=== PATIENT | female | born 1980 | race Caucasian/White ===

== ENCOUNTER 2020-05-13 09:43 | Outpatient (REF) | payer OTHER, SELFPAY ==
[2020-05-14 09:47] LABS: BV Int Neg Control Negative (Negative); BV Int Pos Control Positive (Positive)
[2020-05-15 13:03] LABS: C. trachomatis RNA TMA NOT DETECTED; N. gonorrhoeae RNA TMA NOT DETECTED
== END 2020-05-13 09:44 | disposition home or self-care (01) ==
LOC: HO.LAB 09:43
PROVIDERS: Visit Provider Advanced Practice Midwife
DX: Z01.419 Encounter for gynecological examination (general) (routine) without abnormal findings (principal); N83.209 Unspecified ovarian cyst, unspecified side; R32 Unspecified urinary incontinence; Z20.2 Contact with and (suspected) exposure to infections with a predominantly sexual mode of transmission; I10 Essential (primary) hypertension
CPT/HCPCS: 87480; 87491; 87510; 87591; 87660; 99202

== ENCOUNTER 2020-05-28 13:41 | Outpatient (REF) | payer OTHER, SELFPAY ==
--- NOTE | 2020-05-28 13:49 | US_ITS ---
EXAMINATION: US PELVIS COMPLETE CLINICAL INFORMATION: Ovarian cyst. COMPARISON: Ultrasound pelvis 01/19/2020. TECHNIQUE: Transabdominal and transvaginal ultrasound of the pelvis is performed. FINDINGS: The uterus is anteverted and anteflexed measuring 9.2 cm in length, 5.8 cm in AP and 5.8 cm in transverse dimension. Endometrial thickness measures 1.2 cm. There is a hypoechoic lesion in the left fundus measuring 3.0 x 3.1 x 2.5 cm, consistent with fibroid. Previously it measured 3.1 x 3.0 x 3.1 cm. Previously seen second fibroid is not visualized at this time. There are several nabothian cysts in the cervix. Previously visualized myometrial cyst is not seen at this time. Right ovary measures 2.8 x 1.7 x 1.9 cm and volume 4.7 mL. Previously it measured 3.5 x 2.5 x 2.1 cm. Left ovary measures 2.7 x 2.9 x 2.8 cm and volume 11.5 mL. Previously it measured 2.3 x 2.3 x 1.7 cm. There is no free fluid in the cul-de-sac. US/US transvaginal IMPRESSION: Left uterine fibroid is stable. Unremarkable ovaries. Small nabothian cysts in the cervix.
--- NOTE | 2020-05-28 13:49 | US_ITS ---
EXAMINATION: US PELVIS COMPLETE CLINICAL INFORMATION: Ovarian cyst. COMPARISON: Ultrasound pelvis 01/19/2020. TECHNIQUE: Transabdominal and transvaginal ultrasound of the pelvis is performed. FINDINGS: The uterus is anteverted and anteflexed measuring 9.2 cm in length, 5.8 cm in AP and 5.8 cm in transverse dimension. Endometrial thickness measures 1.2 cm. There is a hypoechoic lesion in the left fundus measuring 3.0 x 3.1 x 2.5 cm, consistent with fibroid. Previously it measured 3.1 x 3.0 x 3.1 cm. Previously seen second fibroid is not visualized at this time. There are several nabothian cysts in the cervix. Previously visualized myometrial cyst is not seen at this time. Right ovary measures 2.8 x 1.7 x 1.9 cm and volume 4.7 mL. Previously it measured 3.5 x 2.5 x 2.1 cm. Left ovary measures 2.7 x 2.9 x 2.8 cm and volume 11.5 mL. Previously it measured 2.3 x 2.3 x 1.7 cm. There is no free fluid in the cul-de-sac. US/US pelvic complete IMPRESSION: Left uterine fibroid is stable. Unremarkable ovaries. Small nabothian cysts in the cervix.
== END 2020-05-28 13:42 | disposition home or self-care (01) ==
LOC: HO.US 13:41
PROVIDERS: Visit Provider Advanced Practice Midwife
DX: N83.209 Unspecified ovarian cyst, unspecified side (principal)
CPT/HCPCS: 76830; 76856

== ENCOUNTER → 2020-06-11 10:40 | Outpatient (BNVA) | payer OTHER, SELFPAY | PROVIDERS: PCP Internal Medicine; Visit Provider Advanced Practice Midwife | DX: D21.9 Benign neoplasm of connective and other soft tissue, unspecified (principal); Z71.2 Person consulting for explanation of examination or test findings | CPT/HCPCS: 99212 ==

== ENCOUNTER 2021-01-18 19:02 | Emergency (ER) | payer OTHER, SELFPAY ==
[2021-01-18 19:09] VITALS: BP 139/89; PULSE 96; RESP 16; TEMP 36.5; O2SAT 97; BMI 35.4
--- NOTE | 2021-01-18 20:22 | ED_ITS ---
HPI - General Adult General Chief complaint: Extremity Problem Stated complaint: Leg cramping Time Seen by Provider: 01/18/21 20:11 Source: patient Mode of arrival: ambulatory Limitations: no limitations History of Present Illness HPI narrative: 40-year-old female who presents emergency department for evaluation of pain in her lower extremities and cramping in her calf muscles at night. The patient does have a history of varicose veins and she states that she is having pain in her varicose veins. She states that on the right leg she is having pain from her ankle to her thigh in on her left leg she is having pain in her thigh. She points to multiple varicose veins are causing the pain. She states the pain is a constant, dull ache which is 8/10 at its worst. She also states that several times a night she will wake up with severe pain in her calf muscles. She denied fever, chills, chest pain, shortness of breath, dyspnea on exertion. She denies swelling of her lower extremities. She states that oc casionally she takes ibuprofen for the pain and this does give her some relief. Related Data Home Medications Medication Instructions Recorded Confirmed amlodipine 5 mg tablet 5 mg PO DAILY 05/13/20 Previous Rx's Medication Instructions Recorded cyclobenzaprine 10 mg tablet 10 mg PO BEDTIME PRN #20 tab 01/18/21 Allergies Allergy/AdvReac Type Severity Reaction Status Date / Time No Known Allergies Allergy Verified 01/18/21 19:09 Review of Systems Review of Systems: Yes all other systems are reviewed and are negative PMFSH Past Medical History [facility] Narrative: Social history: She denies tobacco, alcohol and drug use. Medical History Cervicitis HTN (hypertension) Hyperlipidemia Ovarian cyst Surgical History History of bilateral breast reduction surgery Hx of tubal ligation Family History Family History Mother Ovarian cancer Sister Diabetes HTN (hypertension) Social History Social History Alcohol intake: never Advance Directives: No Advance Directives Information Provided: No Gender identity: Female Physical Exam Vital Signs: Vital Signs: Last Vital Signs Temp 97.7 F 01/18/21 19:09 Pulse 96 01/18/21 19:09 Resp 16 01/18/21 19:09 BP 139/89 01/18/21 19:09 Pulse Ox 97 01/18/21 19:09 Body Mass Index 35.4 Const: General: cooperative and no acute distress Orientation/consciousness: oriented to person and oriented to place Limitations: no limitations HENMT: Head: Yes normal to inspection, Yes normocephalic and Yes atraumatic Ears: external ears normal General nose exam: Normal external nose present Face and sinus: Yes normal facial exam Mouth: Normal oral and palatal mucosa present Throat: Yes posterior oropharynx normal Eyes: General: appearance normal, both eyes and all related structures Pupils: Equal, round and reactive pupils present Neck: Neck: Yes normal visual inspection, Yes no lymphadenopathy, Yes trachea midline and Yes supple Chest: Chest palpation & inspection: normal inspection of the chest and normal palpation of entire chest wall Resp: Effort & Inspection: normal respiratory effort and able to speak in complete sentences Auscultation: clear to auscultation bilaterally Cardio: Rate: regular rate Rhythm: regular rhythm Heart sounds: S1 normal heart sound present, S2 normal heart sound present and no murmurs GI: Inspection: Yes normal to inspection Palpation (GI): Soft to palpation, nontender and no guarding Auscultation: normal bowel sounds : General: Yes no CVA tenderness Back/Spine/Pelvis: Back: no CVA tenderness Skin: General skin exam: no rashes or lesions noted Neuro: General: oriented to person and oriented to place Cranial nerves: Yes CN's II-XII intact bilaterally and Yes Equal, round and reactive pupils present Cognition (Neuro): normal cognition Motor exam (neuro): 5/5 motor strength present throughout Extrem: Other: Patient does have bilateral varicose veins was supple areas of ecchymosis over these veins, there is no increased warmth or cords noted, both lower extremities appear to be normal in size and are symmetric, negative Homans sign bilaterally. Psych: Appearance: grossly normal Speech and movement: Normal speech and movement present Affect: normal affect Attitude: cooperative Thought process: Normal thought process present Thought content: Normal thought content present Course Course Course Narrative: 40-year-old female who presents emergency department for evaluation of bilateral lower extremity pain, varicose veins and cramping that occurs in her calves at night. The patient's vital signs were normal with an O2 saturation of 97% on room air. Patient was not tachycardic or tachypneic. Exam did reveal multiple varicose veins but no evidence of swelling of her visor caps. At this time I do not think that she has a DVT as the cause of her leg pain but I do think that she has pain in her varicose vein secondary to thrombophlebitis. The patient was advised to take ibuprofen Tylenol for pain. I will start her on cyclobenzaprine 10 mg at night as needed for leg cramps to see if this improves her symptoms. The patient was given verbal and printed instructions prior to discharge. The patient was advised to follow-up with her PCP in 2 days and to return to the emergency department if her symptoms get worse or if she develops any new symptoms that are concerning to her. Discharge Plan Discharge Clinical Impression: Calf cramp Varicose veins of both lower extremities Qualifiers: Varicose vein complication: pain Qualified Code(s): I83.813 - Varicose veins of bilateral lower extremities with pain Patient Disposition: Home, Self-Care Instructions: Leg Cramps (ED) Additional Instructions: Take ibuprofen 200 mg pills, 3 pills every 6 hours as needed for pain. Take Tylenol (acetaminophen) 500 mg pills, 2 pills every 4 to 6 hours as needed for pain. I am prescribing Flexeril (cyclobenzaprine) 10 mg, 1 pill at night as needed for leg cramps. This medication will make you sleepy, do not drive or work after taking this medication. You should also try using a heating pad on low heat on your legs especially in areas that hurt, this often helps reduce the pain from varicose veins. Follow-up with your doctor in 2 days. Please return to the emergency department if your symptoms get worse or if you develop any symptoms that are concerning to you. Prescriptions: New cyclobenzaprine 10 mg tablet 10 mg PO BEDTIME PRN (Reason: muscle spasm) Qty: 20 RF: 0 No Action amlodipine 5 mg tablet 5 mg PO DAILY RF: 0
== END 2021-01-18 21:02 | disposition home or self-care (01) ==
PROVIDERS: Emergency Provider Emergency Medicine Emergency Medical Services
DX: R25.2 Cramp and spasm (principal); I83.813 Varicose veins of bilateral lower extremities with pain; I10 Essential (primary) hypertension
CPT/HCPCS: 99283

== ENCOUNTER 2021-03-03 19:55 | Emergency (ER) | payer OTHER, SELFPAY ==
--- NOTE | ~2021-03-03 | XR_ITS ---
EXAMINATION: PORTABLE CHEST 1 VIEW CLINICAL INFORMATION: Chest pressure . COMPARISON: 04/04/2019. TECHNIQUE: Portable frontal view of the chest was obtained. FINDINGS: The lungs are well expanded. No focal infiltrate, effusion, edema, or pneumothorax. Cardiac and mediastinal silhouettes are within normal limits for technique. No acute bony abnormality seen. XR/XR chest 1V IMPRESSION: No evidence of acute disease.
[2021-03-03 21:58] VITALS: BP 147/105; PULSE 95; RESP 18; TEMP 37; O2SAT 98; BMI 37.8
--- NOTE | 2021-03-03 22:15 | ED_ITS ---
HPI - General Adult General Chief complaint: General Medical Stated complaint: Flu like Source: patient Mode of arrival: ambulatory Limitations: no limitations History of Present Illness HPI narrative: 40-year-old female presents with upper respiratory symptoms, diarrhea, abdominal pain and some chest tightness for approximately 1 week. Would like to be tested for COVID-19. Onset (ago): week(s) (1) Location: head, chest and abdomen Radiation: non-radiation Severity: mild Quality: aching Pain Consistency: constant Relieving factors: none Associated symptoms: cough, fever/chills and headaches Treatments prior to arrival: none Related Data Home Medications Medication Instructions Recorded Confirmed amlodipine 5 mg tablet 5 mg PO DAILY 05/13/20 Previous Rx's Medication Instructions Recorded cyclobenzaprine 10 mg tablet 10 mg PO BEDTIME PRN #20 tab 01/18/21 Allergies Allergy/AdvReac Type Severity Reaction Status Date / Time No Known Allergies Allergy Verified 01/18/21 19:09 Review of Systems Review of Systems: Constitutional: No Fever, no Chills, positive fatigue, positive Malaise ENT/Mouth: No sore throat, positive runny nose Eyes: No Discharge Cardiovascular: Positive Chest Pain, No SOB Respiratory: Positive Cough, No Sputum, No Wheezing, No Smoke Exposure, No Dyspnea Gastrointestinal: Positive Nausea, No Vomiting, No Diarrhea Genitourinary: no irregular bleeding, No Dysuria, No Urinary Frequency, No Hematuria, No Urinary Incontinence, No Urgency, No Flank Pain, Musculoskeletal: positive Myalgia Skin: No rash Neuro: Positive Headache Yes all other systems are reviewed and are negative PMFSH Past Medical History Attestation statement: The following information was validated with the patient. Source: old records reviewed Medical History Cervicitis HTN (hypertension) Hyperlipidemia Ovarian cyst Surgical History History of bilateral breast reduction surgery Hx of tubal ligation Family History Family History Mother Ovarian cancer Sister Diabetes HTN (hypertension) Social History Social History Alcohol intake: never Advance Directives: No Advance Directives Information Provided: No Patient : No Gender identity: Female Physical Exam Vital Signs: Vital Signs: Last Vital Signs Temp 98.6 F 03/03/21 21:58 Pulse 95 03/03/21 21:58 Resp 18 03/03/21 21:58 BP 147/105 H 03/03/21 21:58 Pulse Ox 98 03/03/21 21:58 Body Mass Index 37.8 Appearance: Alert. Oriented X3. Mild distress. Appears tired. Eyes: Pupils equal, round and reactive to light. Sclera nonicteric. ENT: Pharynx normal. Moist mucous membranes. Neck: Normal inspection. Neck supple. No cervical lymphadenopathy noted. CVS: Normal heart rate and rhythm. Pulses normal. Respiratory: No respiratory distress. Breath sounds normal. Abdomen: Soft and nontender. Obese. Skin: Skin warm and dry. Normal skin color. Normal skin turgor. Extremities: No lower extremity edema. Moves all extremities against resistance. Neuro: No motor deficit. No sensory deficit. Cranial nerves 2-12 intact. Course Course Course Narrative: 40-year-old female presents with upper respiratory symptoms consistent with COVID-19. Will order some testing. She does state to have some chest tightness and pressure. Will order EKG and chest x-ray. If EKG shows any abnormalities we will continue with serial troponins. Abdominal exam is unremarkable, negative psoas, obturator and rigidity. Low likelihood of acute abdomen at this time. COVID-19 negative. Chest x-ray normal. EKG indicates normal sinus. Wells PE score is 0. Plan of care to discharge home. Patient verbalized understanding of and agrees to plan. Medical Decision Making Differential Diagnosis Differential Diagnosis: Upper respiratory, COVID, influenza, pneumonia, ACS Medical Records Medical records reviewed: Yes I reviewed the patient's medical records. Lab Data Lab results reviewed: Yes I reviewed the patient's lab results. Labs: Lab Results 03/03/21 Range/Units 22:04 COVID-19 (AMY) Negative (Negative) COVID-19 Clin Com See Note Imaging Data Chest x-ray: Attestation: I personally reviewed and interpreted this imaging study as f amanda: ECG Data Attestation: I personally reviewed and interpreted this ECG as follows: Prior ECG tracings: available for review Interpretation: Vent. rate 89 BPM NH interval 140 ms QRS duration 76 ms QT/QTc 380/462 ms P-R-T axes 33 -1 17 Normal sinus rhythm Normal ECG When compared with ECG of 04-APR-2018 14:16, No significant change was found 03-MAR-2021 22:42:39 Discharge Plan Discharge Clinical Impression: Upper respiratory infection, acute High blood pressure Qualifiers: Hypertension type: unspecified Qualified Code(s): I10 - Essential (primary) hypertension Patient Disposition: Home, Self-Care Instructions: Hypertension (ED), Upper Respiratory Infection (ED), Viral Syndrome (ED) Additional Instructions: Se le evalu? por s?ntomas de las v?as respiratorias superiores. Neal prueba de COVID-19 es negativa. Neal radiograf?a de t?rax fue normal. Neal ECG fue de ritmo sinusal normal. Neal presi?n arterial est? elevada. Milana un seguimiento con neal m?dico de atenci?n primaria esta semana charles evaluaci?n de neal medicaci?n para la presi?n arterial. Eve por elegir abdi departamento de emergencias para neal evaluaci?n. Milana un seguimiento con neal m?dico de atenci?n primaria seg?n sea necesario. Regrese al departamento de emergencias por cualquier s?ntoma nuevo, preocupante o que empeore. You were evaluated for upper respiratory symptoms. Your COVID-19 test is negative. Your chest x-ray was normal. Your EKG was normal sinus rhythm. Your blood pressure is elevated. Please follow up with your primary care physician this week as your blood pressure medication evaluation. Thank you for choosing this emergency department for evaluation. Please follow -up with primary care physician as needed. Return to the emergency department for any new, concerning, or worsening symptoms. Prescriptions: No Action cyclobenzaprine 10 mg tablet 10 mg PO BEDTIME PRN (Reason: muscle spasm) Qty: 20 RF: 0 amlodipine 5 mg tablet 5 mg PO DAILY RF: 0
--- NOTE | 2021-03-03 22:15 | ECG_ITS ---
Test Reason : CHEST PAIN Blood Pressure : / mmHG Vent. Rate : 089 BPM Atrial Rate : 089 BPM P-R Int : 140 ms QRS Dur : 076 ms QT Int : 380 ms P-R-T Axes : 033 -01 017 degrees QTc Int : 462 ms Normal sinus rhythm Normal ECG When compared with ECG of 04-APR-2018 14:16, No significant change was found Referred By: Eve Cisse Electronically Signed By:BILLY ALEXANDER MD
[2021-03-03 22:26] LABS: COVID-19 Test Negative (Negative)
== END 2021-03-03 23:38 | disposition home or self-care (01) ==
PROVIDERS: Emergency Provider Internal Medicine
DX: J06.9 Acute upper respiratory infection, unspecified (principal); I10 Essential (primary) hypertension; Z20.822 Contact with and (suspected) exposure to COVID-19
CPT/HCPCS: 36415; 71045; 87635; 93005; 99283

== ENCOUNTER 2021-07-23 11:30 | Outpatient (REF) | payer OTHER, SELFPAY ==
[2021-07-23 13:46] LABS: Hematocrit 37.8 % (37.0-47.0); Mean Corpuscular HGB Conc 31.7 g/dl (31.0-35.0); Mean Corpuscular Hemoglobin 26.5 pg (27.0-33.0); Mean Corpuscular Volume 83.4 fL (80.0-98.0); Mean Platelet Volume 10.5 fL (9.4-12.3); Platelet Count 339 X10*3/uL (160-400); Red Blood Count 4.53 X10*6/uL (4.20-5.50); Red Cell Distribution Width 14.5 % (11.0-16.0); White Blood Count 8.3 X10*3/uL (4.8-10.8)
[2021-07-23 14:45] LABS: Thyroid Stimulating Hormone 1.05 uIU/mL (0.32-4.0)
[2021-07-23 14:55] LABS: Syphilis Screen Nonreactive (Nonreactive)
[2021-07-24 04:32] LABS: ~HepC Num1 0.14 S/CO (0.00-0.79); ~Hepatitis C Antibody Nonreactive (Nonreactive)
[2021-07-24 04:39] LABS: HBsAGNum1 0.26 S/CO (0.00-0.99); HIV AB/AG Nonreactive (Nonreactive); HIV Num 1 0.05 S/CO (0.00-0.99); Hepatitis B Surface Antigen Negative (Negative)
== END 2021-07-23 11:31 | disposition home or self-care (01) ==
LOC: HO.LAB 11:30
PROVIDERS: Visit Provider Advanced Practice Midwife
DX: Z00.00 Encounter for general adult medical examination without abnormal findings (principal); D21.9 Benign neoplasm of connective and other soft tissue, unspecified; N92.0 Excessive and frequent menstruation with regular cycle; I10 Essential (primary) hypertension; Z98.890 Other specified postprocedural states; Z79.899 Other long term (current) drug therapy; Z20.2 Contact with and (suspected) exposure to infections with a predominantly sexual mode of transmission
CPT/HCPCS: 36415; 84443; 85027; 86780; 86803; 87340; 87389

== ENCOUNTER 2021-07-23 13:09 | Outpatient (REF) | payer OTHER, SELFPAY ==
[2021-07-23 17:08] LABS: CT PCR NOT DETECTED (Not Detect.); NG PCR NOT DETECTED (Not Detect.)
[2021-07-24 13:31] LABS: BV Int Neg Control Negative (Negative); BV Int Pos Control Positive (Positive)
[2021-07-29 11:51] LABS: HPV 16 RNA NOT DETECTED (NOT DETECTED); HPV mRNA E6/E7 rflx Detected (Not Detected)
== END 2021-07-23 13:10 | disposition home or self-care (01) ==
LOC: HO.LAB 13:09
PROVIDERS: Visit Provider Advanced Practice Midwife
DX: Z01.419 Encounter for gynecological examination (general) (routine) without abnormal findings (principal); Z20.2 Contact with and (suspected) exposure to infections with a predominantly sexual mode of transmission
CPT/HCPCS: 87480; 87491; 87510; 87591; 87624; 87625; 87660; 88142

== ENCOUNTER 2021-09-30 08:29 | Outpatient (REF) | payer OTHER, SELFPAY | END 2021-09-30 08:30 | disposition home or self-care (01) | LOC: HO.LAB 08:29 | PROVIDERS: Visit Provider Obstetrics & Gynecology | DX: R87.810 Cervical high risk human papillomavirus (HPV) DNA test positive (principal); R87.610 Atypical squamous cells of undetermined significance on cytologic smear of cervix (ASC-US) | CPT/HCPCS: 57454; 88305; 88342; 88360 ==

== ENCOUNTER → 2021-11-25 09:52 | Outpatient (BNVA) | payer OTHER, SELFPAY | PROVIDERS: PCP Pediatrics; Visit Provider Obstetrics & Gynecology | DX: R87.610 Atypical squamous cells of undetermined significance on cytologic smear of cervix (ASC-US) (principal); R87.810 Cervical high risk human papillomavirus (HPV) DNA test positive; Z98.890 Other specified postprocedural states | CPT/HCPCS: 99212 ==

== ENCOUNTER 2022-05-09 11:31 | Emergency (ER) | payer OTHER, SELFPAY ==
--- NOTE | ~2022-05-09 | XR_ITS ---
EXAMINATION: XR CHEST CLINICAL INFORMATION: Cough COMPARISON: Chest x-ray March 03, 2021 TECHNIQUE: 2 views of the chest were obtained. FINDINGS: Cardiac silhouette is normal in size. The lungs are well aerated. There is no lobar consolidation. No pleural effusion or pneumothorax. Mild degenerative changes of the spine. XR/XR chest 2V IMPRESSION: No acute pulmonary pathology.
[2022-05-09 11:34] VITALS: BP 146/93; PULSE 108; RESP 18; TEMP 36.9; O2SAT 97; BMI 36.5
--- NOTE | 2022-05-09 12:21 | ECG_ITS ---
Test Reason : SOB Blood Pressure : / mmHG Vent. Rate : 096 BPM Atrial Rate : 096 BPM P-R Int : 132 ms QRS Dur : 072 ms QT Int : 358 ms P-R-T Axes : 036 002 027 degrees QTc Int : 452 ms Normal sinus rhythm Normal ECG When compared with ECG of 03-MAR-2021 22:42, No significant change was found Referred By: Larry Rae Electronically Signed By:FRANCISCA PERALTA
--- NOTE | 2022-05-09 12:21 | ED.GENADULT ---
HPI - General Adult General Chief complaint: Upper Respiratory Symptoms Stated complaint: Dizzy, congestion Time Seen by Provider: 05/09/22 12:02 History of Present Illness HPI narrative: patient complains of dizziness today feeling lightheaded when she stands up Over the last 4- 5 days she has had possible fever ,body aches congestion stuffy nose cough, members of her family have been sick with the same The dizziness is a lightheaded feeling without a feeling of room spinning, no associated weakness or numbness, balance and walking have been fine, she has not fainted she has no chest pain no shortness of breath no vomiting Related Data Home Medications Medication Instructions Recorded Confirmed amlodipine 5 mg tablet 5 mg PO DAILY 05/13/20 07/23/21 Previous Rx's Medication Instructions Recorded cyclobenzaprine 10 mg tablet 10 mg PO BEDTIME PRN muscle spasm 01/18/21 #20 tabs acetaminophen 500 mg tablet 1,000 mg PO QID PRN pain #30 tabs 05/09/22 ibuprofen 600 mg tablet 600 mg PO Q6H PRN fever or pain 05/09/22 #20 tabs Allergies Allergy/AdvReac Type Severity Reaction Status Date / Time No Known Allergies Allergy Verified 05/09/22 11:34 Review of Systems Review of Systems: positive for fever body aches dizziness cough Negatives are no confusion no loss of balance no chest pain no palpitations no shortness of breath no exertional symptoms no diaphoresis no fainting no stiff neck no abdominal pain no nausea vomiting or diarrhea no dysuria no frequency no skin rash no joint swelling no numbness or weakness no difficulty ambulating Yes all other systems are reviewed and are negative PMFSH Past Medical History Medical History Cervicitis HTN (hypertension) Hyperlipidemia Ovarian cyst Surgical History History of bilateral breast reduction surgery Hx of abdominoplasty Hx of bladder repair surgery Hx of tubal ligation Family History Family History Mother Ovarian cancer Sister Diabetes HTN (hypertension) Social History Social History Alcohol intake: never Patient Tobacco Use Status: Never used Tobacco Advance Directives: No Advance Directives Information Provided: No Gender identity: Female Physical Exam ED Vital Signs: Vital Signs - 24 hr 05/09/22 14:28 Temperature 99.3 F Pulse Rate 92 Blood Pressure 129/81 Pulse Oximetry 97 Oxygen Delivery Method Room Air BMI result Body Mass Index 36.5 general appearance uncomfortable but no acute distress Eyes no redness or discharge The sinuses were nontender the nose was congested The pharynx was clear without redness swelling or exudate, voice was normal, membranes were mildly dry Neck was supple Chest clear to auscultation bilateral Heart no murmur Abdomen soft nontender Extremities full range of motion x4 Neuro gait balance are normal, interaction both verbal and comprehension and expression are normal, cerebellar exam was normal, motor is 5/5 x4, sensation intact and symmetrical in cranial nerves 2-12 intact as tested Course Course Course Narrative: EKG was a normal sinus rhythm with a rate of 96, no acute ischemic changes no ST changes intervals were normal and QT was normal Chest x-ray was normal no pneumonia Lab evaluation without any acute findings Patient was hydrated with a L of saline with improvement in her dizziness, she ambulated easily with good balance and felt improved Flu test was positive but patient is out of the window for Tamiflu as she has had symptoms for several days and patient was discharged home, ambulating easily tolerating p.o. and feeling improved Medications Administered Discontinued Medications Generic Name Dose Route Start Last Admin Trade Name Rosemary PRN Reason Stop Dose Admin Acetaminophen 975 mg 05/09/22 14:35 05/09/22 14:38 Acetaminophen 325 Mg Tablet PO 05/09/22 14:36 975 mg ONCE ONE Administration Sodium Chloride 1,000 mls @ 999 mls/hr 05/09/22 12:30 05/09/22 14:41 Ns IVCONT 05/09/22 13:30 Infused .Q1H1M RADHA Infusion Medical Decision Making Lab Data MDM Lab Attestation statement: I reviewed the patient's lab results. Result Diagrams: 05/09/22 12:31 05/09/22 13:10 Labs: Lab Results 05/09/22 05/09/22 05/09/22 Range/Units 11:34 12:31 13:10 WBC 4.6 L (4.8-10.8) X10*3/uL RBC 4.50 (4.20-5.50) X10*6/uL Hgb 11.4 L (12.0-16.0) g/dl Hct 35.6 L (37.0-47.0) % MCV 79.1 L (80.0-98.0) fL MCH 25.3 L (27.0-33.0) pg MCHC 32.0 (31.0-35.0) g/dl RDW 15.0 (11.0-16.0) % Plt Count 287 (160-400) X10*3/uL MPV 10.0 (9.4-12.3) fL Immature Gran % (Auto) 0.2 (0.0-0.4) % Neut % (Auto) 68.5 (45-73) % Lymph % (Auto) 16.0 L (20-40) % Johnson % (Auto) 12.7 H (2-11) % Eos % (Auto) 2.2 (0-4) % Baso % (Auto) 0.4 (0-2) % Lymph # (Auto) 0.7 L (1.2-4.9) X10*3/uL Johnson # (Auto) 0.6 (0.1-1.2) X10*3/uL Eos # (Auto) 0.1 (0.0-0.4) X10*3/uL Baso # (Auto) 0.0 (0.0-0.2) X10*3/uL Abs Immat Gran (auto) 0.01 (0.00-0.03) X10*3/uL Absolute Neuts (auto) 3.2 (2.0-8.3) x10*3/uL Absolute Nucleated RBC 0.000 (0.0-0.012) X10*3/uL Nucleated RBC % (auto) 0.0 (0.0-0.2) /100WBC Sodium 138 (135-145) mmol/L Potassium 3.7 (3.3-5.1) mmol/L Chloride 104 (96-108) mmol/L Carbon Dioxide 26 (22-29) mmol/L Anion Gap 12 (12-20) BUN 7 L (9-16) mg/dL Creatinine 0.64 (0.5-1.4) mg/dL Estim Creat Clear Calc 146.5 Estimated GFR > 60 Random Glucose 113 (60-115) mg/dL Calcium 8.6 (8.4-10.2) mg/dL Influenza Type A (PCR) POSITIVE A (Negative) Influenza Type B (PCR) NEGATIVE (Negative) RSV RNA Qual (PCR) NEGATIVE (Negative) SARS-CoV-2 RNA (RT-PCR) NEGATIVE (Negative) Discharge Plan Discharge Clinical Impression: Influenza, Dizziness Patient Disposition: Home, Self-Care Additional Instructions: our testing today showed that you have the flu Chest x-ray and EKG were normal blood tests did not show any emergent condition Make sure you stay very well hydrated drink plenty of fluids, use Tylenol and or Motrin as needed Return to the ER any time for worsening dizziness chest pain shortness of breath vomiting any worse condition or any concerns The dizziness should improve as the flu improves as long as you stay very well hydrated Prescriptions: New acetaminophen 500 mg tablet 1,000 mg PO QID PRN (Reason: pain) Qty: 30 0RF ibuprofen 600 mg tablet 600 mg PO Q6H PRN (Reason: fever or pain) Qty: 20 0RF No Action cyclobenzaprine 10 mg tablet 10 mg PO BEDTIME PRN (Reason: muscle spasm) Qty: 20 0RF amlodipine 5 mg tablet 5 mg PO DAILY Stand Alone Forms: Work/School Release Interventions: ED Discharge Assessment Last Done: 05/09/22 14:42 Discharge Date/Time: 05/09/22 14:42
[2022-05-09 12:31] LABS: Influenza A PCR POSITIVE (Negative); Influenza B PCR NEGATIVE (Negative); Resp Syncy Virus RNA Qual PCR NEGATIVE (Negative); SARS COV2 PCR INHOUSE NEGATIVE (Negative)
[2022-05-09] MEDS: 0.9 % Sodium Chloride 1,000 ML 999 ML IVCONT (12:34)
[2022-05-09 12:35] LABS: MANUAL DIFF FLAG NO
[2022-05-09 12:48] LABS: Basophils Percent Auto 0.4 % (0-2); Eosinophils Absolute Auto 0.1 X10*3/uL (0.0-0.4); Eosinophils Percent Auto 2.2 % (0-4); Hematocrit 35.6 % (37.0-47.0); Hemoglobin 11.4 g/dl (12.0-16.0); Imm Gran Abs Auto 0.01 X10*3/uL (0.00-0.03); Imm Gran Pct Auto 0.2 % (0.0-0.4); Lymphocytes Absolute Auto 0.7 X10*3/uL (1.2-4.9); Mean Corpuscular Hemoglobin 25.3 pg (27.0-33.0); Mean Corpuscular Volume 79.1 fL (80.0-98.0); Monocytes Absolute Auto 0.6 X10*3/uL (0.1-1.2); Monocytes Percent Auto 12.7 % (2-11); Neutrophils Absolute Auto 3.2 x10*3/uL (2.0-8.3); Neutrophils Percent Auto 68.5 % (45-73); Platelet Count 287 X10*3/uL (160-400); White Blood Count 4.6 X10*3/uL (4.8-10.8)
[2022-05-09 13:37] LABS: Anion Gap 12 (12-20); Blood Urea Nitrogen 7 mg/dL (9-16); Calcium 8.6 mg/dL (8.4-10.2); Carbon Dioxide 26 mmol/L (22-29); Chloride 104 mmol/L (96-108); Creatinine Clr Calc Pharmacy 146.5; Estimated Glomerular Filt Rate > 60; Glucose Random 113 mg/dL (60-115); Potassium 3.7 mmol/L (3.3-5.1); Sodium 138 mmol/L (135-145)
[2022-05-09 14:28] VITALS: BP 129/81; PULSE 92; TEMP 37.4; O2SAT 97
[2022-05-09] MEDS: Acetaminophen 325 MG TABLET 975 MG PO (14:38)
== END 2022-05-09 14:42 | disposition home or self-care (01) ==
PROVIDERS: Physician Assistant Medical; Emergency Provider Emergency Medicine; PCP Nurse Practitioner Psychiatric/Mental Health
DX: J11.1 Influenza due to unidentified influenza virus with other respiratory manifestations (principal); R42 Dizziness and giddiness; Z20.822 Contact with and (suspected) exposure to COVID-19; I10 Essential (primary) hypertension; E78.5 Hyperlipidemia, unspecified
CPT/HCPCS: 0241U; 36415; 71046; 80048; 85025; 93005; 96360; 96361; 99284

== ENCOUNTER 2022-10-11 19:05 | Emergency (ER) | payer MEDICAID, SELFPAY ==
[2022-10-11 19:09] VITALS: BP 152/100; PULSE 96; RESP 16; TEMP 36.8; O2SAT 98; BMI 37.9
--- NOTE | 2022-10-11 19:12 | ECG_ITS ---
Test Reason : CHEST PAIN Blood Pressure : / mmHG Vent. Rate : 088 BPM Atrial Rate : 088 BPM P-R Int : 136 ms QRS Dur : 076 ms QT Int : 386 ms P-R-T Axes : 024 000 023 degrees QTc Int : 467 ms Normal sinus rhythm Cannot rule out Anterior infarct , age undetermined - could be related to body habitus/lead placement Abnormal ECG When compared with ECG of 09-MAY-2022 12:45, No significant change was found Referred By: Generic ED Physician Electronically Signed By:FRANCISCA PERALTA
[2022-10-11 19:24] LABS: MANUAL DIFF FLAG NO
[2022-10-11 19:26] LABS: Basophils Percent Auto 0.4 % (0-2); Eosinophils Absolute Auto 0.2 X10*3/uL (0.0-0.4); Eosinophils Percent Auto 1.9 % (0-4); Hemoglobin 9.9 g/dl (12.0-16.0); Imm Gran Abs Auto 0.02 X10*3/uL (0.00-0.03); Imm Gran Pct Auto 0.2 % (0.0-0.4); Lymphocytes Percent Auto 21.1 % (20-40); Mean Corpuscular HGB Conc 30.9 g/dl (31.0-35.0); Mean Corpuscular Hemoglobin 23.4 pg (27.0-33.0); Mean Corpuscular Volume 75.7 fL (80.0-98.0); Mean Platelet Volume 9.9 fL (9.4-12.3); Monocytes Absolute Auto 0.4 X10*3/uL (0.1-1.2); Monocytes Percent Auto 4.5 % (2-11); Neutrophils Absolute Auto 6.9 x10*3/uL (2.0-8.3); Neutrophils Percent Auto 71.9 % (45-73); Platelet Count 328 X10*3/uL (160-400); Red Blood Count 4.23 X10*6/uL (4.20-5.50); Red Cell Distribution Width 15.9 % (11.0-16.0); White Blood Count 9.6 X10*3/uL (4.8-10.8)
[2022-10-11 19:43] LABS: Anion Gap 13 (12-20); Blood Urea Nitrogen 14 mg/dL (9-16); Calcium 8.9 mg/dL (8.4-10.2); Carbon Dioxide 24 mmol/L (22-29); Chloride 105 mmol/L (96-108); Creatinine Clr Calc Pharmacy 122.6; Estimated Glomerular Filt Rate > 60; Glucose Random 188 mg/dL (60-115); Potassium 3.7 mmol/L (3.3-5.1); Sodium 138 mmol/L (135-145)
[2022-10-11 19:54] LABS: Troponin-I High Sensitivity < 2.7 ng/L (<3.5-17.0)
--- NOTE | 2022-10-11 21:09 | ED_ITS ---
HPI - Chest Pain General Chief Complaint: Chest Pain Stated Complaint: dizziness, chest pain, difficulty breathing Time Seen by Provider: 10/11/22 21:02 Source: patient Mode of arrival: ambulatory Limitations: no limitations History of Present Illness HPI narrative: Patient comes to the emergency room complaining of feeling tired for 2 days. Patient initially mentioned that she was dizzy, but explained dizziness as feeling stressed and tired. Denies lightheadedness, no chest pain or shortness of breath, no room spinning, no unsteady gait. Related Data Home Medications Medication Instructions Recorded Confirmed amlodipine 5 mg tablet 5 mg PO DAILY 05/13/20 07/23/21 Previous Rx's Medication Instructions Recorded cyclobenzaprine 10 mg tablet 10 mg PO BEDTIME PRN muscle spasm 01/18/21 #20 tabs acetaminophen 500 mg tablet 1,000 mg PO QID PRN pain #30 tabs 05/09/22 ibuprofen 600 mg tablet 600 mg PO Q6H PRN fever or pain 05/09/22 #20 tabs amlodipine 5 mg tablet 5 mg PO DAILY #30 tabs 10/11/22 ferrous sulfate 325 mg (65 mg 325 mg PO DAILY #30 tabs 10/11/22 iron) tablet polyethylene glycol 3350 17 17 g PO DAILY PRN constipation 10/11/22 gram/dose oral powder (Miralax) #238 grams Allergies Allergy/AdvReac Type Severity Reaction Status Date / Time No Known Allergies Allergy Verified 10/11/22 20:58 Review of Systems Review of Systems: Constitutional : No Weight loss, No Fever, No Chills, No Night Sweats, complaining of fatigue ENT/Mouth : No Hearing loss, No Ear Pain, No Nasal Congestion, No Sinus Pain, No Hoarseness, No sore throat, No Rhinorrhea, No Swallowing Difficulty Eyes: No Eye Pain, No Swelling, No Redness, No Foreign Body, No Discharge, No Vision Changes Cardiovascular : No Chest Pain, No SOB, No Dyspnea on Exertion, No Orthopnea, No Edema, No Palpitations Respiratory : No Cough, No Sputum, No Wheezing, No Smoke Exposure, No Dyspnea Gastrointestinal : No Nausea, No Vomiting, No Diarrhea, No Constipation, No abdominal Pain, No Hematochezia, No Melena Genitourinary : no irregular bleeding, No Dysuria, No Urinary Frequency, No Hematuria, No Urinary Incontinence, No Urgency, No Flank Pain, No Urinary Flow Changes, No Hesitancy Musculoskeletal : No joint pain, No Myalgias, No Joint Swelling Skin : No Skin Lesions, No rash Neuro : No Weakness, No Numbness, No Paresthesias, No Loss of Consciousness, No Dizziness, No Headache Psych : No Anxiety/Panic, No Depression, No SI/HI/AH/VH, No Social Issues, Heme/Lymph: No Bruising, No Bleeding,No Lymphadenopathy Endocrine : No Polyuria, No Polydipsia, No Temperature Intolerance [facility] Past Medical History Medical History Cervicitis HTN (hypertension) Hyperlipidemia Ovarian cyst Surgical History History of bilateral breast reduction surgery Hx of abdominoplasty Hx of bladder repair surgery Hx of tubal ligation Family History Family History Mother Ovarian cancer Sister Diabetes HTN (hypertension) Social History Social History Alcohol intake: never Patient Tobacco Use Status: Never used Tobacco Gender identity: Female Physical Exam Vital Signs: Vital Signs: Last Vital Signs Temp 98.3 F 10/11/22 19:09 Pulse 96 10/11/22 19:09 Resp 16 10/11/22 19:09 BP 152/100 H 10/11/22 19:09 Pulse Ox 98 10/11/22 19:09 O2 Del Method Room Air 10/11/22 19:09 BMI result Body Mass Index 37.9 Const: Other: Appearance: Alert. Oriented X3. No acute distress. Eyes: Pupils equal, round and reactive to light. ENT: Pharynx normal. Neck: Normal inspection. Neck supple. No lymph nodes noted. No crepitus CVS: Normal heart rate and rhythm. Pulses normal. Normal S1 and S2 Respiratory: No respiratory distress. Breath sounds normal. No Wheezing. No rales Abdomen: Soft and nontender. No rigidity. No distention. Skin: Skin warm and dry. Normal skin color. Normal skin turgor. Extremities: No lower extremity edema. No Lacerations. No Rash Neuro: Oriented X 3. No motor deficit. No sensory deficit. Moving all ext remities. No slurred speech. CN 2 through 12 grossly intact Psych: calm, cooperative, normal affect Medical Decision Making Medical Decision Making MDM Narrative: -patient's physical exam is unremarkable -EKG interpretation: Normal sinus rhythm, heart rate 88, no ST segment depression or elevation, no T-wave inversion, QTC 467 -troponin negative. -it was noted that patient has chronic anemia, patient states that she has heavy menstrual periods -blood pressure 152/100, patient is opposed to taking blood pressure medications but due to insurance problems versus prescription issues she has been out of medications for several days. Lab Data 10/11/22 19:18 10/11/22 19:18 Labs: Lab Results 10/11/22 10/11/22 10/11/22 Range/Units 19:18 19:18 19:18 WBC 9.6 (4.8-10.8) X10*3/uL RBC 4.23 (4.20-5.50) X10*6/uL Hgb 9.9 L (12.0-16.0) g/dl Hct 32.0 L (37.0-47.0) % MCV 75.7 L (80.0-98.0) fL MCH 23.4 L (27.0-33.0) pg MCHC 30.9 L (31.0-35.0) g/dl RDW 15.9 (11.0-16.0) % Plt Count 328 (160-400) X10*3/uL MPV 9.9 (9.4-12.3) fL Immature Gran % (Auto) 0.2 (0.0-0.4) % Neut % (Auto) 71.9 (45-73) % Lymph % (Auto) 21.1 (20-40) % [place] % (Auto) 4.5 (2-11) % Eos % (Auto) 1.9 (0-4) % Baso % (Auto) 0.4 (0-2) % Lymph # (Auto) 2.0 (1.2-4.9) X10*3/uL [place] # (Auto) 0.4 (0.1-1.2) X10*3/uL Eos # (Auto) 0.2 (0.0-0.4) X10*3/uL Baso # (Auto) 0.0 (0.0-0.2) X10*3/uL Abs Immat Gran (auto) 0.02 (0.00-0.03) X10*3/uL Absolute Neuts (auto) 6.9 (2.0-8.3) x10*3/uL Absolute Nucleated RBC 0.000 (0.0-0.012) X10*3/uL Nucleated RBC % (auto) 0.0 (0.0-0.2) /100WBC Sodium 138 (135-145) mmol/L Potassium 3.7 (3.3-5.1) mmol/L Chloride 105 (96-108) mmol/L Carbon Dioxide 24 (22-29) mmol/L Anion Gap 13 (12-20) BUN 14 (9-16) mg/dL Creatinine 0.78 (0.5-1.4) mg/dL Estim Creat Clear Calc 122.6 Estimated GFR > 60 Random Glucose 188 H (60-115) mg/dL Calcium 8.9 (8.4-10.2) mg/dL Troponin I High Sens < 2.7 (<3.5-17.0) ng/L Discharge Plan Discharge Clinical Impression: High blood pressure, Fatigue, Anemia, chronic disease Patient Disposition: Home, Self-Care Instructions: Hypertension (ED), Anemia (ED) Additional Instructions: Please follow-up with your primary care physician tomorrow. If you have any worsening or new symptoms, please return to the emergency room or call 911 Prescriptions: New amlodipine 5 mg tablet 5 mg PO DAILY Qty: 30 0RF ferrous sulfate 325 mg (65 mg iron) tablet 325 mg PO DAILY Qty: 30 0RF polyethylene glycol 3350 [Miralax] 17 gram/dose powder 17 g PO DAILY PRN (Reason: constipation) Qty: 238 0RF No Action cyclobenzaprine 10 mg tablet 10 mg PO BEDTIME PRN (Reason: muscle spasm) Qty: 20 0RF acetaminophen 500 mg tablet 1,000 mg PO QID PRN (Reason: pain) Qty: 30 0RF ibuprofen 600 mg tablet 600 mg PO Q6H PRN (Reason: fever or pain) Qty: 20 0RF amlodipine 5 mg tablet 5 mg PO DAILY
[2022-10-11 21:10] VITALS: BP 131/75; PULSE 83; RESP 18; TEMP 36.9; O2SAT 99
[2022-10-11] MEDS: amLODIPine Besylate 5 MG TABLET PO (21:22)
[2022-10-11 21:32] LABS: HCG Quantitative < 2 mIU/mL
== END 2022-10-11 21:33 | disposition home or self-care (01) ==
PROVIDERS: Emergency Provider Emergency Medicine; PCP Nurse Practitioner Psychiatric/Mental Health
DX: R07.89 Other chest pain (principal); R42 Dizziness and giddiness; R06.02 Shortness of breath; I10 Essential (primary) hypertension; D50.9 Iron deficiency anemia, unspecified; Z79.899 Other long term (current) drug therapy
CPT/HCPCS: 36415; 80048; 84484; 84702; 85025; 93005; 99284

== ENCOUNTER 2022-12-07 21:28 | Emergency (ER) | payer MEDICAID, SELFPAY ==
--- NOTE | ~2022-12-07 | XR_ITS ---
EXAMINATION: XR FOOT, RIGHT CLINICAL INFORMATION: Injury and pain COMPARISON: None available. TECHNIQUE: AP, lateral, and oblique views of the right foot. FINDINGS: There is a non-displaced intra-articular fracture involving the base of the proximal phalanx of the fifth digit. The bones and soft tissues are otherwise unremarkable. No additional fracture. Alignment is anatomic. Joint spaces are maintained. XR/XR foot RT min 3V IMPRESSION: Nondisplaced intra-articular fracture involving the base of the proximal phalanx fifth digit.
[2022-12-07 23:26] VITALS: BP 164/97; PULSE 95; RESP 16; TEMP 36.1; O2SAT 98; BMI 35.0
[2022-12-08 01:31] VITALS: BP 126/82; PULSE 74; RESP 16; O2SAT 98
--- NOTE | 2022-12-08 01:32 | MHC.EDTECH ---
THIS PCT JUST ASSUMED CARE OF PATIENT ,VITALS SIGN TAKEN ,PT RESTING QUIETLY IN BED .
--- NOTE | 2022-12-08 04:04 | ED.LOWEXIN ---
HPI - Extremity Injury (Lower) General Chief Complaint: Extremity Injury, Lower Stated Complaint: Right foot pain/injury Time Seen by Provider: 12/08/22 03:57 Source: patient Mode of arrival: ambulatory Limitations: no limitations History of Present Illness HPI Narrative: right foot injury when she was rushing and kicked the bed causing swelling and echymosis to the base of the right 5th digit. It happened over 12 hours ago complaint: foot injury Onset (ago): hour(s) Related Data Home Medications Medication Instructions Recorded Confirmed amlodipine 5 mg tablet 5 mg PO DAILY 05/13/20 07/23/21 Previous Rx's Medication Instructions Recorded cyclobenzaprine 10 mg tablet 10 mg PO BEDTIME PRN muscle spasm 01/18/21 #20 tabs acetaminophen 500 mg tablet 1,000 mg PO QID PRN pain #30 tabs 05/09/22 ibuprofen 600 mg tablet 600 mg PO Q6H PRN fever or pain 05/09/22 #20 tabs amlodipine 5 mg tablet 5 mg PO DAILY #30 tabs 10/11/22 ferrous sulfate 325 mg (65 mg 325 mg PO DAILY #30 tabs 10/11/22 iron) tablet polyethylene glycol 3350 17 17 g PO DAILY PRN constipation 10/11/22 gram/dose oral powder (Miralax) #238 grams naproxen 500 mg tablet (Naprosyn) 500 mg PO BID #20 tabs 12/08/22 Allergies Allergy/AdvReac Type Severity Reaction Status Date / Time No Known Allergies Allergy Verified 12/07/22 23:26 Review of Systems Review of Systems: Yes all other systems are reviewed and are negative Neurologic: Denies Sensory deficit (Neuro) PMF Past Medical History Medical History Cervicitis HTN (hypertension) Hyperlipidemia Ovarian cyst Surgical History History of bilateral breast reduction surgery Hx of abdominoplasty Hx of bladder repair surgery Hx of tubal ligation Family History Family History Mother Ovarian cancer Sister Diabetes HTN (hypertension) Social History Social History Alcohol intake: never Patient Tobacco Use Status: Never used Tobacco Advance Directives: No Advance Directives Information Provided: Yes Gender identity: Female Physical Exam Vital Signs: Vital Signs: Last Vital Signs Temp 96.9 F 12/07/22 23:26 Pulse 74 12/08/22 01:31 Resp 16 12/08/22 01:31 BP 126/82 12/08/22 01:31 Pulse Ox 98 12/08/22 01:31 O2 Del Method Room Air 12/08/22 01:31 BMI result Body Mass Index 35.0 Const: General: healthy appearing Nutritional Appearance: average body habitus Orientation/consciousness: oriented to person and patient oriented x3 Limitations: no limitations HEENT: Head: Yes normal to inspection Ears: external ears normal General nose exam: Normal external nose present Mouth: Normal oral and palatal mucosa present and oropharynx normal Throat: Yes posterior oropharynx normal Eyes: General: appearance normal, both eyes and all related structures Neck: Other: supple Neck: Yes normal visual inspection Chest: Chest palpation & inspection: normal inspection of the chest Resp: Auscultation: clear to auscultation bilaterally Cardio: Jugular venous distension: no JVD Rate: regular rate Rhythm: regular rhythm Heart sounds: S1 normal heart sound present and S2 normal heart sound present GI: Inspection: Yes normal to inspection Palpation (GI): Soft to palpation, nontender and No hepatosplenomegaly present Auscultation: normal bowel sounds : General: Yes no CVA tenderness Back/Spine/Pelvis: Back: no CVA tenderness Skin: General skin exam: no rashes or lesions noted Neuro: General: oriented to person and patient oriented x3 Cranial nerves: Yes CN's II-XII intact bilaterally Motor exam (neuro): 5/5 motor strength present throughout Sensory Exam: No Sensory deficit (Neuro) Extrem: Other: BAse of the fifth digit right foot with swelling and ecchymosis. Psych: Appearance: grossly normal Course Reevaluation(s) Reevaluation #1: patient with a fracture to the base of the 5th toe, no other injuries will dc in a hard shoe Time: 04:11 Medical Decision Making Differential Diagnosis Differential Diagnoses: The differential diagnosis associated with the presentation includes (foot fracture, foot contusion, toe fracture were all considered) Independent Interpretation I performed an independent interpretation of an: Plain X-Ray (base of the 5th digit with nondisplacement) Prescription Management I considered prescription management with: Pain Medication (i considered narcotic pain medicine) Discharge Plan Discharge Clinical Impression: Fracture of toe Patient Disposition: Home, Self-Care Instructions: Toe Fracture (ED), Foot Fracture in Adults (ED) Prescriptions: New naproxen [Naprosyn] 500 mg tablet 500 mg PO BID Qty: 20 0RF No Action cyclobenzaprine 10 mg tablet 10 mg PO BEDTIME PRN (Reason: muscle spasm) Qty: 20 0RF acetaminophen 500 mg tablet 1,000 mg PO QID PRN (Reason: pain) Qty: 30 0RF ibuprofen 600 mg tablet 600 mg PO Q6H PRN (Reason: fever or pain) Qty: 20 0RF amlodipine 5 mg tablet 5 mg PO DAILY Qty: 30 0RF ferrous sulfate 325 mg (65 mg iron) tablet 325 mg PO DAILY Qty: 30 0RF polyethylene glycol 3350 [Miralax] 17 gram/dose powder 17 g PO DAILY PRN (Reason: constipation) Qty: 238 0RF amlodipine 5 mg tablet 5 mg PO DAILY Referrals: [facility] [place] [facility] [Provider Group] - 5 days
[2022-12-08 04:36] VITALS: BP 145/88; PULSE 79; RESP 16; TEMP 36.6; O2SAT 98
[2022-12-08] MEDS: Ketorolac Tromethamine 60 MG/2 ML VIAL IM (04:37)
== END 2022-12-08 04:52 | disposition home or self-care (01) ==
PROVIDERS: Emergency Provider Emergency Medicine
DX: S92.501A Displaced unspecified fracture of right lesser toe(s), initial encounter for closed fracture (principal); Y29.XXXA Contact with blunt object, undetermined intent, initial encounter; Y93.9 Activity, unspecified; Y92.9 Unspecified place or not applicable; Y99.9 Unspecified external cause status; Z79.899 Other long term (current) drug therapy
CPT/HCPCS: 73630; 96372; 99283; 99284; J1885

== ENCOUNTER 2022-12-17 12:49 | Outpatient (AMB) | payer MEDICAID, SELFPAY ==
--- NOTE | 2022-12-17 12:54 | A.OFFVIS_ITS ---
Intake Vital Signs 12/17/22 12:59 Height 5 ft 8 in Weight 243 lb BMI 36.9 Intake Visit Reasons: fc- fracture to the base of the 5th toe Intake Note: Skylar 42 yr old female present today for her right foot injury from 12/07/22. States she was rushing and kicked the bed causing swelling and to the base of the right 5th digit. Seen in ED where she was given a cam walker boot. Currently patient states she did not wear the boot as advised. States it was very uncomfortable and wasnt able to drive. States she has pain and feels as if its stiff. Denies numbness or tingling in her right foot/toes. Allergies No Known Allergies Allergy (Verified 12/17/22 12:59) HPI fc- fracture to the base of the 5th toe HPI Details 42-year-old female who presents in the office today, as a new patient, for an evaluation of right foot pain. The patient presented to the ED on 12/08/2022 status post kicking the bed, which occurred on 12/07/2022. X-rays of the right foot were obtained. She was placed in a cam walking boot. She reports that she has not been wearing the boot as directed. She claims the boot is very uncomfortable and she was unable to drive. She states she has pain and stiffness in the right foot. She denies numbness or tingling in her right foot and toes. 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 [facility] Medical History Cervicitis HTN (hypertension) Hyperlipidemia Ovarian cyst Surgical History History of bilateral breast reduction surgery Hx of abdominoplasty Hx of bladder repair surgery Hx of tubal ligation Family History Mother Ovarian cancer Sister Diabetes HTN (hypertension) Social History (Updated 12/17/22 @ 13:00 by MORAIMA Sloan) Alcohol intake: never Patient Tobacco Use Status: Never used Tobacco Current occupational status: employed Current occupation: TRACK SERVICE WORKER/ left hand Gender identity: Female Female Reproductive History Menstrual Age of Menarche: 10 Review of Systems Const All systems reviewed & are unremarkable except as noted in HPI and below Physical Exam Vital Signs: BMI result Body Mass Index 36.9 Const General: cooperative and no acute distress Orientation/consciousness: patient oriented x3 Resp Effort & Inspection: normal respiratory effort and able to speak in complete sentences Cardio Peripheral pulses: Peripheral pulses 2+ throughout Skin General skin exam: no rashes or lesions noted Neuro General: patient oriented x3 Extrem Other: Right foot: Tenderness to palpation at the base of the 5th proximal phalanx, with resolving ecchymosis. Able to move all digits. Sensation intact. Capillary refill is brisk. Office Procedures Fracture Care Fracture Billing Code: Fracture Billing Code Assessment & Plan Assessment & Plan (1) Fracture of fifth metatarsal bone of right foot: Comment: Nondisplaced intra-articular fracture involving the base of the proximal phalanx fifth digit. Code(s): S92.351A - Displaced fracture of fifth metatarsal bone, right foot, initial encounter for closed fracture Plan Ms. Davila is a 42-year-old female who presents in the office today, as a new patient, for an evaluation of right foot pain. The patient presented to the ED on 12/08/2022 status post kicking the bed, which occurred on 12/07/2022. X-rays of the right foot were obtained. She was placed in a cam walking boot. She reports that she has not been wearing the boot as directed. She claims the boot is very uncomfortable and she was unable to drive. She states she has pain and stiffness in the right foot. She denies numbness or tingling in her right foot and toes. 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 The patient was educated that the little toe will take 6-8 weeks to heal. I educated the patient on kely taping, which was demonstrated to her in the office today. She was instructed to ice and elevate the foot as much as she can. Follow up will be PRN, or sooner if needed. X-rays of the right foot, obtained on 12/07/2022, revealed: Nondisplaced intra-articular fracture involving the base of the proximal phalanx fifth digit. Patient Instructions: Scribed for Connie Falcon PA-C by Yvonne Caruso medical voucher clerk, on 12/17/2022 at 12:52 pm, EST. Your attestation Coding Level of Care Code New Pt Level 3 (92893) Diagnoses Fracture of fifth metatarsal bone of right foot S92.351A CPT Codes Fracture Care - Fracture Billing Code: Fracture Billing Code ([id number])
[2022-12-17 12:59] VITALS: BMI 36.9
== END 2022-12-17 13:23 | disposition home or self-care (01) ==
PROVIDERS: Visit Provider Physician Assistant
DX: S92.354A Nondisplaced fracture of fifth metatarsal bone, right foot, initial encounter for closed fracture (principal)
CPT/HCPCS: 99203

== ENCOUNTER → 2022-12-17 12:49 | Outpatient (BNVA) | payer MEDICAID, SELFPAY | PROVIDERS: Visit Provider Physician Assistant | DX: S92.351A Displaced fracture of fifth metatarsal bone, right foot, initial encounter for closed fracture (principal); W22.09XA Striking against other stationary object, initial encounter | CPT/HCPCS: 99203 ==

== ENCOUNTER 2025-05-04 14:31 | Emergency (ER) | payer MEDICAID, SELFPAY ==
--- OUTSIDE RECORDS SUMMARY | 2024-11-09 10:00 | XMS_ITS | Continuity of Care Document ---
Author Organization [facility] Address [address] [place] [address] Phone Care Team Providers Care Manager Of Warehouse Name Role Phone Binu CISSE, RVT, CAROLINE, Elver Unavailable U navailable Allergies, Adverse Reactions, Alerts Substance Reaction Status Criticality No Known Allergies Active No Inform ation Procedures Procedure Date Office/Outpt E&M Established 15 Mins- CT & [place] Duplex Scan-extrem Veins; Comp- CT & [place] Varithena, Single Truncal Vein - CT & [place] PT Did Not Receive Services Duplex Scan-extrem Veins; Uni/ CT & [place] M Ultrason Guidan Needle Bx-rad- CT & [place] Inj Sclerosing Solution; Sngl- CT & [place] M Duplex Scan-extrem Veins; Uni/ CT & [place] M Varithena, Single Truncal Vein - CT & [place] Office/Oupt E&M New Pt 30 Mins- CT & [place] Surgical Stockings CVR Reveal Thigh High 20-30 Duplex Scan-extrem Veins; Comp- CT & [place] Advance Directives Directive Yes / No Effective Date File Name No Information Encounters Encounter Description Practice Location Reason(s) For Visit Diagnoses Date Provider Providers Copied on Encounter Office/Outpt E&M Established 15 Mins- [place] & [place] [facility], [address], [place], [id number], [place] tel:[phone] CVR - [facility] Venous insufficiency (chronic) (peripheral) 5 Binu CISSE RVT, CAROLINE Raya. [address] [place] [address], [place], [place], [id number] , [place]. tel:[phone] Referring Provider: Cali Moses NP, [address], [address]. tel:[phone] [facility], [address] [place] [address] Dr Kaur [address] [place], [id number], [place] tel:[phone] CVR - [facility] Chronic venous hypertension (idiopathic) with other complications of bilateral lower extremity 5 Binu CISSE RVT, CAROLINE Raya. [address] [place] [address], [place], [place], [id number] , [place]. tel:[phone] Referring Provider: Cali Moses NP, [address], [address]. tel:[phone] [facility], [address] [place] [address] Dr Kaur [address] [address], [id number], [place] tel:[phone] CVR - [facility] Chronic venous hypertension (idiopathic) with inflammation of left lower extremity 5 Binu CISSE RVT, RPVI Robert. [address] [place] [address], [place], [place], [id number] , [place]. tel:[phone] Referring Provider: Cali Moses NP, [address], [address]. tel:[phone] [facility], [address] [place] [address] Dr Kaur 1000[facility] Y[place], [id number], [place] tel:[phone] [facility] No Information 5 Binu CISSE RVT, CAROLINE Raya. [address] [place] [address], [place], [place], [id number] , [place]. tel:[phone] Referring Provider: Cali Moses NP, [address], [address]. tel:[phone] [facility], [address] [place] [address] [address], [id number], [place] tel:[phone] [facility] Encounter for follow-up examination after completed treatment for conditions other than malignant neoplasmVaric ose veins of right lower extremity with pain May-0 8- 5 Binu CISSE RVT, CAROLINE Raya. [address] [place] [address], [facility], [place], [id number] , [place]. tel:[phone] Referring Provider: Cali Moses NP, [address], [address]. tel:[phone] [facility], [address] [place] [address] [facility] [address], [id number], [place] [phone] [facility] Varicose veins of right lower extremity with other complications May-0 - 5 Binu CISSE RVT, CAROLINE Raya. [address] [place] [address], [facility], [place], [id number] , [place]. tel:[phone] Referring Provider: Cali Moses NP, [address], [address]. tel:[phone] [facility], [address] [place] [address] [address], [id number], [place] tel:[phone] [facility] Encounter for follow-up examination after completed treatment for conditions other than malignant neoplasmVaric ose veins of right lower extremity with pain May-0 - 5 Binu CISSE RVT, CAROLINE Raya. [address] [place] [address], [place] [address], [facility], [place], [id number] , [place]. tel:[phone] Referring Provider: Cali Moses NP, [address], [address]. tel:[phone] [facility], [address] [place] [address] Dr Kaur [address], [id number], [place] tel:[phone] CVR - [facility] Varicose veins of right lower extremity with other complications 5 Binu CISSE RVT, RPVI Robert. [address] [place] [address], [facility] [place], [id number] , [place]. tel:[phone] Referring Provider: Cali Moses NP, [address], [address]. tel:[phone] [facility], [address] [place] [address] Dr Kaur [address]Suite [place], [id number], [place] tel:[phone] [facility] No Information 5 Binu CISSE RVT, CAROLINE Raya. [address] [place] [address], [place], [id number] , [place]. tel:[phone] Office/Oupt E&M New Pt 30 Mins- CT & [place] [facility] [facility], [address] [place] [address] Dr Kaur [address]Suite [place], [id number], [place] tel:[phone] CVR - [facility] Lymphedema, not elsewhere classifiedPru ritus, unspecifiedHe reditary lymphedemaPai n in right lower legPain in left lower legPain in right legPain in left legType 2 diabetes mellitus without complications Restless legs syndromeEssen tial (primary) hypertensionC ramp and spasmLocalize d edema Aug- 5 Binu CISSE RVT, CAROLINE Raya. [address] [place] [address], [place], [id number] , [place]. tel:[phone] Referring Provider: Cali Moses NP, [address], [address]. tel:[phone] [facility], [address] [place] [address] Dr Kaur [address]Suite [place], [id number], [place] tel:[phone] [facility] Chronic venous hypertension (idiopathic) with other complications of bilateral lower extremity Binu CISSE, RVT, RPVI Elver. [address], [address], [place], [place], [id number] , . tel:[phone] Referring Provider: Cali Moses TELECINE OPERATOR, [facility] [address], [place], [address]. tel:[phone] Family History Family Member Type Diagnosis Age At Onset No Information Payers Payer name Insurance type Covered green party ID Authoriza tijose(s) Medical Assistance [facility] [id number] Social History Type Description Quantity Date Captured Comments Alcohol Use Details Unknown Caffeine Use Details Unknown Tobacco Use Status Current non-smoker Smoking Status Never Smoker Non-Smoking Tobacco Use Details : No Details Available : No Details Available Sex Female Vital Signs Date / Time: Height Weight BMI Pulse Rate Blood Pressure Temperature Respiratory Rate Body Surface Area Head Circumference Head Circ. Percentile Wt./Jono. Percentile BMI percentile Pulse Ox Inhaled Ox 107.950 kg (238.00 lbs) 36.3 2 kg/m eter (2) 126/86 mm[Hg] Chief Complaint And Reason For Visit No Information Reason For Referral Reason For Referral No Information Plan Of Treatment Date Type Action Status Goal Diet education completed Goal Diet education completed Referral Ordered: Weight management: Referral to physician timeframe: 3 Months (related to Body mass index (BMI) 36.0-36.9, adult) ordered Referral Ordered: Weight management: Referral to physician timeframe: 3 Months (related to Body mass index (BMI) 36.0-36.9, adult) ordered Appointment Skylar Davila BOOKED Appointment Skylar Davila BOOKED History Of Present Illness Encounter Date Complaint History Of Prese nt Illness No Information Functional Status Date Functional Assessmen t No Information Instructions Date Instruction Additional Infor mation Patient education booklet given Related to Venous insufficiency (chronic) (peripheral) Lifestyle education Related to B steven mass index (BMI) 36.0-36.9, adult Giving Encouragement to exercise Related to Body mass index (BMI) 36.0-36.9, adult Diet education Related to Body mass index (BMI) 36.0-36.9, adult Pre and post instruc tions reviewed and provided Related to Pain in right lower leg Patient education booklet given Related to Pain in right lower leg Lifestyle education Related to B steven mass index (BMI) 36.0-36.9, adult Giving Encouragement to exercise Related to Body mass index (BMI) 36.0-36.9, adult Diet education Related to Body mass index (BMI) 36.0-36.9, adult Assessments Type Assessment Date No Information Patient Care Teams Name Effective Dates (start - stop) Status Members No Information
--- NOTE | ~2025-05-04 | XR_ITS ---
CLINICAL HISTORY: weakness, fatigue 2 view chest x-ray Comparison: None provided Findings: Lungs are clear without acute infiltrates. No pneumothorax. Heart size normal. No acute bony abnormalities. Impression: No acute processes This document has been electronically signed by: Jose Miguel Zhang MD on 05/04/2025 20:36:23
[2025-05-04 14:52] VITALS: BP 172/92; PULSE 99; RESP 18; TEMP 36.9; O2SAT 98; BMI 36.5
--- NOTE | 2025-05-04 14:53 | ED.GENADULT ---
HPI - General Adult General Chief complaint: Weakness Stated complaint: Feels Very Sick Time Seen by Provider: 05/04/25 20:32 History of Present Illness HPI narrative: Patient is a 44-year-old female presents today with generalized malaise weakness. Patient ran out of her blood pressure medicine. Complaining of low-grade fever. Generalized malaise weakness. No pain on urination. No vaginal bleeding. Patient is from home. No chest pain or diaphoresis. Did not miss her menstruation. Patient claims currently she is not active. No coughing or congestion respiratory symptoms. No diaphoresis. No focal weakness. Patient is from home. No frequency Related Data Home Medications ?Medication ?Instructions ?Recorded ?Confirmed amlodipine 5 mg tablet 5 mg PO DAILY 05/13/20 07/23/21 Previous Rx's ?Medication ?Instructions ?Recorded cyclobenzaprine 10 mg tablet 10 mg PO BEDTIME PRN muscle spasm 01/18/21 #20 tabs acetaminophen 500 mg tablet 1,000 mg (2 x 500 mg) PO QID PRN 05/09/22 pain #30 tabs ibuprofen 600 mg tablet 600 mg PO Q6H PRN fever or pain 05/09/22 #20 tabs amlodipine 5 mg tablet 5 mg PO DAILY #30 tabs 10/11/22 ferrous sulfate 325 mg (65 mg 325 mg PO DAILY #30 tabs 10/11/22 iron) tablet polyethylene glycol 3350 17 17 g PO DAILY PRN constipation 10/11/22 gram/dose oral powder (Miralax) #238 grams naproxen 500 mg tablet (Naprosyn) 500 mg PO BID #20 tabs 12/08/22 Allergies Allergy/AdvReac Type Severity Reaction Status Date / Time No Known Allergies Allergy Verified 05/04/25 14:54 Review of Systems Review of Systems: Positive generalized malaise Positive fever 100.4 at home Yes all other systems are reviewed and are negative PMFSH Past Medical History Attestation statement: The following information was validated with the patient. Medical History Cervicitis HTN (hypertension) Hyperlipidemia Ovarian cyst Surgical History History of bilateral breast reduction surgery Hx of abdominoplasty Hx of bladder repair surgery Hx of tubal ligation Family History Family History Mother Ovarian cancer Sister Diabetes HTN (hypertension) Social History Social History (Updated 12/17/22 @ 13:00 by MORAIMA Sloan) Alcohol intake: never Patient Tobacco Use Status: Never used Tobacco Advance Directives: No Advance Directives Information Provided: No Current occupational status: employed Current occupation: [employer]/ left hand Gender identity: Female Physical Exam ED Exam Exam: Appearance: Alert. Oriented X3. No acute distress. Eyes: Pupils equal, round and reactive to light. ENT: Pharynx normal. Neck: Normal inspection. Neck supple. No lymph nodes noted. No crepitus CVS: Normal heart rate and rhythm. Pulses normal. Normal S1 and S2 Respiratory: No respiratory distress. Breath sounds normal. No Wheezing. No rales Abdomen: Soft and nontender. No rigidity. No distention. good BS x4 Skin: Skin warm and dry. Normal skin color. Normal skin turgor. Extremities: No lower extremity edema. Neurovascular intact to all extremities. No Lacerations. No Rash Neuro: Oriented X 3. No motor deficit. No sensory deficit. Moving all extermities. No slurred speech Vital Signs: Vital Signs - 24 hr 05/04/25 14:52 05/04/25 19:48 05/04/25 20:30 Temperature 98.4 F 100.3 F 100 F Pulse Rate 99 115 H 103 H Respiratory Rate 18 18 20 Blood Pressure 172/92 H 152/93 H 123/83 Pulse Oximetry 98 95 97 Oxygen Delivery Method Room Air Room Air Room Air 05/04/25 22:09 Temperature 98.4 F Pulse Rate 91 Respiratory Rate 18 Blood Pressure 104/67 Pulse Oximetry 98 Oxygen Delivery Method Room Air BMI result Body Mass Index 36.5 Course Course Course Narrative: Rapid medical examination performed in triage by Jaylene Tamayo PA-C: Patient is a 44 year old assigned femalr at presenting to the emergency department with weakness, fatigue, and being out of her blood pressure medication. Detailed physical exam and review of systems are deferred to the unattended ground sensor specialist. Labs ordered. Patient placed back in the waiting room pending room availability and results. Medications Administered Discontinued Medications Generic Name Dose Route Start Last Admin Trade Name Freq PRN Reason Stop Dose Admin Acetaminophen 650 mg 05/04/25 19:49 05/04/25 19:51 Acetaminophen 325 Mg Tablet PO 05/04/25 19:50 650 mg ONCE STA Administration Sodium Chloride 1,000 mls @ 999 mls/hr 05/04/25 21:15 05/04/25 23:03 Ns IV 05/04/25 22:15 Infused .Q1H1M RADHA Infusion Medical Decision Making Medical Decision Making [facility] Narrative: Patient's urine showed no signs of infection. COVID flu RSV were all negative. My interpretation patient's chest x-ray is grossly negative there is no pneumonia no pneumothorax. Patient's white count slightly elevated at 12 otherwise hemoglobin hematocrit are normal. Patient's electrolytes normal. Patient's LFTs are normal. TSH is normal at 0.71. test is negative no related issue. COVID flu RSV is all negative. Has a low-grade fever question viral syndrome. Will discharge patient home close follow-up on an outpatient basis no history of IV drug use. Differential Diagnosis Differential Diagnoses: The differential diagnosis associated with the presentation includes Viral syndrome, pneumonia, UTI Admission/Observation Consideration of admission/observation: Escalation of care including admission/observation considered Lab Data [facility] Lab Attestation statement: I reviewed the patient's lab results. 05/04/25 15:10 05/04/25 15:10 Labs: Lab Results 05/04/25 05/04/25 Range/Units 15:10 20:33 WBC 12.3 H (4.8-10.8) X10*3/uL RBC 4.47 (4.20-5.50) X10*6/uL Hgb 11.6 L (12.0-16.0) g/dl Hct 36.5 L (37.0-47.0) % MCV 81.7 (80.0-98.0) fL MCH 26.0 L (27.0-33.0) pg MCHC 31.8 (31.0-35.0) g/dl RDW 15.9 (11.0-16.0) % Plt Count 300 (160-400) X10*3/uL MPV 10.2 (9.4-12.3) fL Immature Gran % (Auto) 0.3 (0.0-0.4) % Neut % (Auto) 88.2 H (45-73) % Lymph % (Auto) 5.7 L (20-40) % Lipscomb % (Auto) 5.0 (2-11) % Eos % (Auto) 0.6 (0-4) % Baso % (Auto) 0.2 (0-2) % Lymph # (Auto) 0.7 L (1.2-4.9) X10*3/uL Lipscomb # (Auto) 0.6 (0.1-1.2) X10*3/uL Eos # (Auto) 0.1 (0.0-0.4) X10*3/uL Baso # (Auto) 0.0 (0.0-0.2) X10*3/uL Abs Immat Gran (auto) 0.04 H (0.00-0.03) X10*3/uL Absolute Neuts (auto) 10.8 H (2.0-8.3) x10*3/uL Absolute Nucleated RBC 0.000 (0.0-0.012) X10*3/uL Nucleated RBC % (auto) 0.0 (0.0-0.2) /100WBC Sodium 137 (135-145) mmol/L Potassium 4.1 (3.3-5.1) mmol/L Chloride 103 (96-108) mmol/L Carbon Dioxide 26 (22-29) mmol/L Anion Gap 12 (12-20) BUN 17 H (9-16) mg/dL Creatinine 0.65 (0.5-1.4) mg/dL Estim Creat Clear Calc 139.8 Estimated GFR > 60 Random Glucose 96 (60-115) mg/dL Calcium 9.6 D (8.4-10.2) mg/dL Magnesium 1.6 (1.6-2.6) mg/dL Total Bilirubin 0.5 (0.0-1.0) mg/dL AST 20 (5-31) U/L ALT 26 (0-31) U/L Alkaline Phosphatase 63 (39-117) U/L Total Protein 7.8 (6.5-8.0) g/dL Albumin 4.2 (3.5-5.0) g/dL TSH 0.71 (0.32-4.0) uIU/mL Urine Color Yellow Urine Appearance Clear Urine pH 5.5 (5.0-9.0) Ur Specific Nicholson 1.025 (1.005-1.025) Urine Protein Negative (Neg-Trace) mg/dL Urine Glucose (UA) Negative (Negative) mg/dL Urine Ketones Negative (Negative) mg/dL Urine Blood Negative (Negative) Urine Nitrite Negative (Negative) Ur Leukocyte Esterase Trace H (Negative) Urine RBC 0-2 (0-2) /HPF Urine WBC 0-5 (0-5) /HPF Ur Squamous Epith Cells 3-5 (0-2) /HPF Urine Bacteria 1+ (None Seen) Hyaline Casts 0-2 (0-2) /LPF Urine Test NEGATIVE (NEGATIVE) Influenza Type A (PCR) NEGATIVE (Negative) Influenza Type B (PCR) NEGATIVE (Negative) RSV RNA Qual (PCR) NEGATIVE (Negative) SARS-CoV-2 RNA (RT-PCR) NEGATIVE (Negative) Independent Interpretation I performed an independent interpretation of an: Plain X-Ray (Chest x-ray grossly negative) Radiology Impression Discussion of test interpretation with radiology: I have reviewed the radiologist's reading. Social Determinants Patient?s care significantly limited by Social Determinants of Health including: Problems related to primary support group Discharge Plan Discharge Clinical Impression: Acute viral syndrome Patient Disposition: Home, Self-Care Instructions: Viral Syndrome (ED) Prescriptions: No Action cyclobenzaprine 10 mg tablet 10 mg PO BEDTIME PRN (Reason: muscle spasm) Qty: 20 0RF acetaminophen 500 mg tablet 1,000 mg PO QID PRN (Reason: pain) Qty: 30 0RF ibuprofen 600 mg tablet 600 mg PO Q6H PRN (Reason: fever or pain) Qty: 20 0RF amlodipine 5 mg tablet 5 mg PO DAILY Qty: 30 0RF ferrous sulfate 325 mg (65 mg iron) tablet 325 mg PO DAILY Qty: 30 0RF polyethylene glycol 3350 [Miralax] 17 gram/dose powder 17 g PO DAILY PRN (Reason: constipation) Qty: 238 0RF naproxen [Naprosyn] 500 mg tablet 500 mg PO BID Qty: 20 0RF amlodipine 5 mg tablet 5 mg PO DAILY Referrals: [facility] [Primary Care Provider, Primary Care] - 05/09/25 Print Language: German
[2025-05-04 15:14] LABS: MANUAL DIFF FLAG NO
[2025-05-04 15:18] LABS: Hematocrit 36.5 % (37.0-47.0); Hemoglobin 11.6 g/dl (12.0-16.0); Imm Gran Abs Auto 0.04 X10*3/uL (0.00-0.03); Imm Gran Pct Auto 0.3 % (0.0-0.4); Lymphocytes Absolute Auto 0.7 X10*3/uL (1.2-4.9); Mean Corpuscular HGB Conc 31.8 g/dl (31.0-35.0); Mean Corpuscular Hemoglobin 26.0 pg (27.0-33.0); Mean Corpuscular Volume 81.7 fL (80.0-98.0); NRBC Abs Auto 0.000 X10*3/uL (0.0-0.012); NRBC Pct Auto 0.0 /100WBC (0.0-0.2); Platelet Count 300 X10*3/uL (160-400); Red Blood Count 4.47 X10*6/uL (4.20-5.50); White Blood Count 12.3 X10*3/uL (4.8-10.8)
[2025-05-04 15:31] LABS: Alanine Aminotransferase 26 U/L (0-31); Albumin Level 4.2 g/dL (3.5-5.0); Alkaline Phosphatase 63 U/L (39-117); Anion Gap 12 (12-20); Aspartate Amino Transferase 20 U/L (5-31); Blood Urea Nitrogen 17 mg/dL (9-16); Calcium 9.6 mg/dL (8.4-10.2); Carbon Dioxide 26 mmol/L (22-29); Chloride 103 mmol/L (96-108); Creatinine Clr Calc Pharmacy 139.8; Estimated Glomerular Filt Rate > 60; Magnesium 1.6 mg/dL (1.6-2.6); Potassium 4.1 mmol/L (3.3-5.1); Sodium 137 mmol/L (135-145); Total Protein 7.8 g/dL (6.5-8.0)
[2025-05-04 15:55] LABS: Resp Syncy Virus RNA Qual PCR NEGATIVE (Negative); SARS COV2 PCR INHOUSE NEGATIVE (Negative)
[2025-05-04 19:48] VITALS: BP 152/93; PULSE 115; RESP 18; TEMP 37.9; O2SAT 95
[2025-05-04 20:30] VITALS: BP 123/83; PULSE 103; RESP 20; TEMP 37.7; O2SAT 97
[2025-05-04 20:39] LABS: Appearance Urine Clear; Glucose Urine UA Negative (Negative); PH 5.5 (5.0-9.0); Specific Gravity - Urine 1.025 (1.005-1.025); UMIC TRIGGER UACC YES
--- OUTSIDE RECORDS SUMMARY | 2025-05-04 20:53 | XMS_ITS | Clinical Summary ---
Author Organization [facility] Address [address] [place] [address] Care Team Providers Care Gastroenterologist Name Role Phone Unavailable Primary Care Provider Unavailabl e Social History Tobacco Use Types Packs/Day Years Used Date Smoking Tobacco: Never Assessed Comments Unknown Sex and Gender Information Value Date Recorded Sex Assigned at Not on file Legal Sex Female 9:26 PM EDT Gender Identity Not on file Sexual Orientation Not on file Plan of Treatment Health Maintenance Due Date Last Done Comments CT Colonography 1978 Colonoscopy 1978 Colorectal Cancer Screening 1978 Depression Screening 1978 FIT DNA/Cologuard 1978 FIT 1978 FOBT 1978 Lipid Panel 1978 SDOH Screening 1978 Sigmoidoscopy 1978 Disability Screening 1978 Alcohol/Substance Use Screening 1990 Tobacco Screening 1990 Family Planning (PISQ) 1993 Hepatitis C Screening 1996 Pneumococcal Vaccine: Pediatrics (0 to 5 Years) and At-Risk Patients (6 to 49) Years (1 of 2 - PCV) 1997 Pap Smear 12/02/1999 Cervical Cancer Screening 2008 HPV/Cotest 2008 Mammogram 12/16/2024 12/16/2022 COVID-19 Vaccine (1 - season) 2025 Influenza Vaccine (#1) 2025 , 03/05/2017, 02/19/2015, Additional history exists DTaP/Tdap/Td Vaccines (2 - Td or Tdap) 03/29/2027 03/29/2017, 03/16/2008 Zoster Vaccines (1 of 2) 2028 RSV Patients and Patients Aged 60 years or older (1 - 1-dose 75+ series) 2053 Hepatitis A Vaccines Aged Out 03/05/2015, 06/01/19 14 No longer eligible based on patient's age to complete this topic Meningococcal Vaccine Aged Out 03/29/2017, 014 No longer eligible based on patient's age to complete this topic Hepatitis B Vaccines Completed 02/05/2021, 12/08/2018, 08/24/2018 HIV Screening Completed 11/21/2024, 01/24/2021 HIB Vaccines Aged Out No longer eligi ble based on patient's age to complete this topic HPV Vaccines Aged Out No longer eligi ble based on patient's age to complete this topic IPV Vaccines Aged Out No longer eligi ble based on patient's age to complete this topic Meningococcal B Vaccine Aged Out No l onger eligible based on patient's age to complete this topic RSV under 20 months Aged Out No longe r eligible based on patient's age to complete this topic Rotavirus Vaccines Aged Out No longer eligible based on patient's age to complete this topic
--- OUTSIDE RECORDS SUMMARY | 2025-05-04 20:53 | XMS_ITS | Patient Health Record ---
Author Organization [facility] Address [address] [place] [address] Care Team Providers Care Combine Driver Name Role Phone Karan - DO NOT USE, [facility] Provider Unavailable Mina Muñoz Unavailable [phone] Reason For Referral No Information Plan Of Treatment No Information Insurance Providers Payer Name Payer Address Payer Phone Subscriber Number Group Number Insured Name Patient Relationship to Insured Coverage Start Date Coverage End Date [place] Medicaid Standard [address] [place] [address] [phone] [id number] Skylar Davila Self - patient is the insured 2
[2025-05-04 21:18] LABS: UPreg QC Valid YES
[2025-05-04 22:02] LABS: Thyroid Stimulating Hormone 0.71 uIU/mL (0.32-4.0)
[2025-05-04 22:09] VITALS: BP 104/67; PULSE 91; RESP 18; TEMP 36.9; O2SAT 98
[2025-05-05] VITALS: BP 127/71; PULSE 89; RESP 18; TEMP 36.9; O2SAT 95
[2025-05-05 00:10] VITALS: BP 127/71; PULSE 89; RESP 18; TEMP 36.9; O2SAT 95
== END 2025-05-05 00:28 | disposition home or self-care (01) ==
PROVIDERS: Physician Assistant Medical; Emergency Provider Emergency Medicine Emergency Medical Services; PCP Dentist General Practice
DX: B34.9 Viral infection, unspecified (principal); I10 Essential (primary) hypertension; E78.5 Hyperlipidemia, unspecified; Z03.818 Encounter for observation for suspected exposure to other biological agents ruled out
CPT/HCPCS: 71046; 80053; 81001; 81025; 83735; 84443; 85025; 87637; 96360; 96361; 99284

== ENCOUNTER → 2025-05-04 19:50 | Outpatient (BNV) | payer MEDICAID, SELFPAY | PROVIDERS: Emergency Provider Emergency Medicine Emergency Medical Services; PCP Dentist General Practice; Visit Provider Radiology Diagnostic Radiology | DX: R53.1 Weakness (principal); R53.83 Other fatigue | CPT/HCPCS: 71046 ==